=== PATIENT | male | born 1965 | race Caucasian/White ===

== ENCOUNTER → 2017-06-04 | Outpatient (CLI) | payer BC, OTHER ==
--- NOTE | 2017-06-05 06:57 | HKNOTE ---
DATE OF SERVICE: 06/04/2017 MAIN COMPLAINT: Pain in the left hip. HISTORY OF MAIN COMPLAINT: The patient is a 52-year-old male who underwent a right hip replacement which was performed by me perhaps 10 years ago. He has been very pleased with the result of his surgery. He now complains of pain in his left hip a nd he is very concerned that this may be "a way more terrible thing than we can handle". There has not been any history of injury to the left hip. The patient does well. The pain is localized over the greater trochanter but also radiates down the lateral aspect of the l eft hip down to the ankle. FAMILY HISTORY: Totally noncontributory. PAST SURGICAL HISTORY: The patient underwent a right hip replacement performed by me approximately 2012. He has been very pleased with the result of the surgery. Prior cortisone. The patient can clip his toenails and tie his shoelaces. SYSTEMS REVIEW: . An MRI scan of the left hip performed probably a week ago . SPORTING ACTIVITIES: None. DICTATION ENDS HERE Dictated By: JACE GUEVARA/JACQUE Conf#: [id number] DID#: [id number]
--- NOTE | 2017-06-05 08:05 | RADRPT ---
PROCEDURE: XR pelvis and left hip. CLINICAL INDICATION: pain TECHNIQUE: AP pelvis, frog lateral views of the left hip were performed. COMPARISON: [facility] HIP 01/07/2013; [facility] PELVIS 01/07/2013 FINDINGS: There is normal mineralization and alignment. No acute fracture or osseous lesion is identified. There is no significant joint space narrowing in the left hip. The patient is status post right hip replacement. The soft tissues are unremarkable. RPTAT: AA IMPRESSION: Unremarkable left hip. Status post right hip replacement with appropriate position of the prosthesis. .Lane Bell MD, MD Date Time Electronically viewed and signed by .Lane Bell MD, on 06/05/2017 08:05 .S/
== END | disposition home or self-care (01) ==
LOC: HKI 09:58
DX: M25.552 Pain in left hip (principal); Z96.641 Presence of right artificial hip joint
CPT/HCPCS: 20610; 73502; G0463

== ENCOUNTER → 2017-08-16 | Outpatient (CLI) | END | disposition home or self-care (01) ==

== ENCOUNTER 2017-10-24 05:37 | Inpatient (IN) | END 2017-10-25 17:33 | disposition home health service (06) | DRG 470 ==